=== PATIENT | female | born 1965 | race Caucasian/White ===

== ENCOUNTER 2021-08-02 09:27 | Emergency (ER) | payer OTHER ==
[~2021-08-02] VITALS: Ht 157.5 cm; Wt 97.1 kg
[2021-08-02 09:30] VITALS: BP_SYST 134
[2021-08-02 10:48] LABS: BASOPHILS % (AUTO) 0.3 % (0.0-2.0); EOSINOPHILS # (AUTO) 0.1 K/uL (0.0-0.4); EOSINOPHILS % (AUTO) 1.8 % (0.0-4.0); HEMATOCRIT 41.1 % (36-48); HEMOGLOBIN 13.6 g/dL (12.0-16.0); LYMPHOCYTES # (AUTO) 1.7 K/uL (1.0-5.5); LYMPHOCYTES % (AUTO) 26.8 % (20.5-51.5); MEAN CORPUSCULAR HEMOGLOBIN 28 pg (27-31); MEAN CORPUSCULAR HGB CONC 33 % (32-36); MEAN CORPUSCULAR VOLUME 83 fL (79.0-98.0); MONOCYTES # (AUTO) 0.3 K/uL (0.0-1.0); MONOCYTES % (AUTO) 5.4 % (1.7-9.3); NEUTROPHILS # (AUTO) 4.1 K/uL (1.8-7.7); NEUTROPHILS % (AUTO) 65.7 % (40.0-70.0); PLATELET COUNT (AUTO) 203 K/uL (130-430); RED BLOOD CELL COUNT(AUTO) 4.93 MIL/uL (4.2-6.2); RED CELL DISTRIBUTION WIDTH 13.7 % (9.0-15.0); WHITE BLOOD COUNT (AUTO) 6.2 K/uL (4.8-10.8)
[2021-08-02 11:09] LABS: CALCIUM 9.4 mg/dL (8.4-11.0); CREATININE 0.56 mg/dL (0.55-1.30); POTASSIUM 4.6 mmol/L (3.5-5.1)
[2021-08-02 11:24] LABS: ALBUMIN 3.2 g/dL (3.4-4.8); THYROID STIMULATING HORMONE 1.45 uIu/mL (0.36-3.74); TOTAL BILIRUBIN 0.4 mg/dL (0.0-1.0)
[2021-08-02] MEDS ORDERED: LORA-259 PO ×2 (11:35→11:42)
[2021-08-02 12:13] VITALS: BP_SYST 129
== END 2021-08-02 12:13 | disposition home or self-care (01) ==
LOC: SED 09:27
DX: I16.0 Hypertensive urgency (principal); Z79.899 Other long term (current) drug therapy
CPT/HCPCS: 36415; 71045; 80053; 83880; 84443; 84484; 85025; 93005; 99285

== ENCOUNTER 2022-06-14 13:34 | Emergency (ER) | payer OTHER ==
[~2022-06-14] VITALS: Ht 157.5 cm; Wt 99.3 kg
[~2022-06-14 13:34] MED LIST: LORA-259 PO
[2022-06-14 13:56] VITALS: BP_SYST 157
--- NOTE | 2022-06-14 14:00 | NUR ---
Patient triaged and placed in waiting room. VSS and patient appears in no acute distress at this time. Accompanied by FAMILY, awaiting available bed, and MD notified of need for MSE.
--- NOTE | 2022-06-14 14:25 | NUR ---
ER DR. OLIVO EXAMINING PT
[2022-06-14] MEDS ORDERED: cloNIDine HCL 0.1 MG TABLET PO ONE (14:30)
[2022-06-14 14:57] LABS: BASOPHILS % (AUTO) 0.2 % (0.0-2.0); EOSINOPHILS # (AUTO) 0.1 K/uL (0.0-0.4); EOSINOPHILS % (AUTO) 1.3 % (0.0-4.0); HEMATOCRIT 40.7 % (36-48); HEMOGLOBIN 13.6 g/dL (12.0-16.0); LYMPHOCYTES # (AUTO) 1.9 K/uL (1.0-5.5); MEAN CORPUSCULAR HEMOGLOBIN 28 pg (27-31); MEAN CORPUSCULAR HGB CONC 34 % (32-36); MEAN CORPUSCULAR VOLUME 85 fL (79.0-98.0); MONOCYTES # (AUTO) 0.4 K/uL (0.0-1.0); MONOCYTES % (AUTO) 4.2 % (1.7-9.3); NEUTROPHILS # (AUTO) 7.1 K/uL (1.8-7.7); NEUTROPHILS % (AUTO) 74.3 % (40.0-70.0); PLATELET COUNT (AUTO) 222 K/uL (130-430); RED CELL DISTRIBUTION WIDTH 13.9 % (9.0-15.0); WHITE BLOOD COUNT (AUTO) 9.6 K/uL (4.8-10.8)
[2022-06-14 15:40] LABS: ANION GAP 8 (5-15); CALCIUM 9.1 mg/dL (8.4-11.0); CHLORIDE 99 mmol/L (98-107); CREATININE 0.65 mg/dL (0.55-1.30); GLUCOSE 153 mg/dL (70-99); UREA NITROGEN, BLOOD 17 mg/dL (8-21)
[2022-06-14 15:46] LABS: ALANINE AMINOTRANSFERASE 17 U/L (12-78); ALBUMIN 3.4 g/dL (3.4-4.8); ASPARTATE AMINOTRANSFERASE 16 U/L (10-37); TOTAL BILIRUBIN 0.4 mg/dL (0.0-1.0)
[2022-06-14 15:48] LABS: GFR AFRICAN AMERICAN 120 mL/min (>90)
[2022-06-14] MEDS ORDERED: LISI1TAB57 PO (16:47)
[2022-06-14] MEDS ORDERED: AMLO5TAB4 PO (16:47)
[2022-06-14 16:53] VITALS: BP_SYST 171
--- NOTE | 2022-06-14 16:54 | NUR ---
Patient given written and verbal discharge instructions and verbalizes understanding. ER MD discussed with patient the results and treatment provided. Patient in stable condition. ID arm band Rx of NORVASC AND LISINOPRIL-HCTZ given. Patient educated on pain management and to follow up with PMD. Pain Scale 0/10. Opportunity for questions provided and answered. Medication side effect fact sheet provided.
== END 2022-06-14 16:54 | disposition home or self-care (01) ==
LOC: SED 13:34
DX: I11.0 Hypertensive heart disease with heart failure (principal); I50.9 Heart failure, unspecified; Z79.899 Other long term (current) drug therapy
CPT/HCPCS: 36415; 80053; 84484; 85025; 93005; 99284

== ENCOUNTER 2023-08-06 13:39 | Emergency (ER) | payer OTHER ==
[~2023-08-06] VITALS: Ht 157.5 cm; Wt 99.8 kg
[~2023-08-06 13:39] MED LIST changes: +AMLO5TAB4 PO; +LISI1TAB57 PO
[2023-08-06 13:42] VITALS: BP_SYST 190; PULSE 73; RESP 22; TEMP 98.3; O2SAT 98
[2023-08-06 14:34] LABS: BASOPHILS % (AUTO) 0.4 % (0.0-2.0); EOSINOPHILS # (AUTO) 0.1 K/uL (0.0-0.4); EOSINOPHILS % (AUTO) 1.5 % (0.0-4.0); HEMATOCRIT 42.7 % (36-48); HEMOGLOBIN 14.5 g/dL (12.0-16.0); LYMPHOCYTES # (AUTO) 3.3 K/uL (1.0-5.5); LYMPHOCYTES % (AUTO) 33.1 % (20.5-51.5); MEAN CORPUSCULAR HEMOGLOBIN 29 pg (27-31); MEAN CORPUSCULAR HGB CONC 34 % (32-36); MEAN CORPUSCULAR VOLUME 85 fL (79.0-98.0); MONOCYTES # (AUTO) 0.5 K/uL (0.0-1.0); MONOCYTES % (AUTO) 5.2 % (1.7-9.3); NEUTROPHILS % (AUTO) 59.8 % (40.0-70.0); PLATELET COUNT (AUTO) 285 K/uL (130-430); RED BLOOD CELL COUNT(AUTO) 4.99 MIL/uL (4.2-6.2); RED CELL DISTRIBUTION WIDTH 13.5 % (9.0-15.0); WHITE BLOOD COUNT (AUTO) 10.1 K/uL (4.8-10.8)
[2023-08-06 14:51] LABS: ALBUMIN 3.6 g/dL (3.4-4.8); CALCIUM 9.2 mg/dL (8.4-11.0); CREATININE 0.75 mg/dL (0.55-1.30); POTASSIUM 4.3 mmol/L (3.5-5.1); TOTAL BILIRUBIN 0.4 mg/dL (0.0-1.0); TOTAL PROTEIN, SERUM 8.1 g/dL (6.4-8.3)
[2023-08-06 15:42] VITALS: BP_SYST 152; PULSE 73; RESP 22; TEMP 98.3; O2SAT 98
== END 2023-08-06 15:42 | disposition home or self-care (01) ==
LOC: SED 13:39
DX: R53.1 Weakness (principal); K21.9 Gastro-esophageal reflux disease without esophagitis; I10 Essential (primary) hypertension; Z90.49 Acquired absence of other specified parts of digestive tract
CPT/HCPCS: 36415; 80053; 83690; 85025; 93005; 99284

== ENCOUNTER 2023-09-01 08:19 | Emergency (ER) | payer OTHER ==
[~2023-09-01] VITALS: Ht 157.5 cm; Wt 99.8 kg
[2023-09-01 08:29] VITALS: BP_SYST 134; PULSE 72; RESP 18; TEMP 97.4; O2SAT 98
[2023-09-01] MEDS ORDERED: ASPI-524 PO (08:29)
[2023-09-01 09:25] LABS: BASOPHILS # (AUTO) 0.1 K/uL (0.0-0.2); BASOPHILS % (AUTO) 0.7 % (0.0-2.0); EOSINOPHILS # (AUTO) 0.2 K/uL (0.0-0.4); EOSINOPHILS % (AUTO) 1.7 % (0.0-4.0); HEMATOCRIT 40.4 % (36-48); HEMOGLOBIN 13.5 g/dL (12.0-16.0); LYMPHOCYTES # (AUTO) 2.2 K/uL (1.0-5.5); LYMPHOCYTES % (AUTO) 25.4 % (20.5-51.5); MEAN CORPUSCULAR HEMOGLOBIN 28 pg (27-31); MEAN CORPUSCULAR HGB CONC 33 % (32-36); MEAN CORPUSCULAR VOLUME 85 fL (79.0-98.0); MONOCYTES # (AUTO) 0.3 K/uL (0.0-1.0); MONOCYTES % (AUTO) 3.5 % (1.7-9.3); NEUTROPHILS # (AUTO) 6.1 K/uL (1.8-7.7); NEUTROPHILS % (AUTO) 68.7 % (40.0-70.0); PLATELET COUNT (AUTO) 259 K/uL (130-430); RED BLOOD CELL COUNT(AUTO) 4.77 MIL/uL (4.2-6.2); RED CELL DISTRIBUTION WIDTH 13.4 % (9.0-15.0); WHITE BLOOD COUNT (AUTO) 8.9 K/uL (4.8-10.8)
[2023-09-01 09:37] LABS: CREATININE 0.81 mg/dL (0.55-1.30); POTASSIUM 4.3 mmol/L (3.5-5.1)
[2023-09-01 10:09] LABS: BILIRUBIN,URINE NEGATIVE (NEGATIVE); BLOOD, URINE NEGATIVE (NEGATIVE); CLARITY/URINE CLEAR (CLEAR); COLOR,URINE YELLOW (YELLOW); GLUCOSE,URINE NEGATIVE (NEGATIVE); KETONES,URINE NEGATIVE (NEGATIVE); LEUKOCYTE ESTERASE ,URINE NEGATIVE (NEGATIVE); NITRITE, URINE NEGATIVE (NEGATIVE); PH,URINE 6.5 (5.0-8.0); PROTEIN URINE NEGATIVE (NEGATIVE); UROBILINOGEN,URINE 0.2 (0.2-1.0)
[2023-09-01] MEDS ORDERED: CIPR500T5 PO (10:44)
[2023-09-01] MEDS ORDERED: HYDR-3917 PO (10:44)
[2023-09-01] MEDS ORDERED: METR-154 PO (10:44)
[2023-09-01] MEDS: CIPROFLOXACIN HCL 500 MG TABLET PO ONE (10:58)
[2023-09-01 11:01] VITALS: BP_SYST 157; PULSE 62; RESP 18; TEMP 98; O2SAT 97
== END 2023-09-01 11:05 | disposition home or self-care (01) ==
LOC: SED 08:19
DX: K57.92 Diverticulitis of intestine, part unspecified, without perforation or abscess without bleeding (principal); I25.10 Atherosclerotic heart disease of native coronary artery without angina pectoris; I10 Essential (primary) hypertension; K21.9 Gastro-esophageal reflux disease without esophagitis; Z98.890 Other specified postprocedural states
CPT/HCPCS: 36415; 80048; 81001; 81003; 85025; 99284

== ENCOUNTER 2023-12-29 12:21 | Emergency (ER) | payer OTHER ==
[~2023-12-29] VITALS: Ht 157.5 cm; Wt 99.3 kg
[~2023-12-29 12:21] MED LIST changes: +ASPI-524 PO; +CIPR500T5 PO; +HYDR-3917 PO; +METR-154 PO
[2023-12-29 12:44] VITALS: BP_SYST 132; PULSE 70; RESP 18; TEMP 97.7; O2SAT 97
[2023-12-29 13:53] VITALS: BP_SYST 132; PULSE 70; RESP 18; TEMP 97.7; O2SAT 97
== END 2023-12-29 13:54 | disposition home or self-care (01) ==
LOC: SED 12:21
DX: M25.511 Pain in right shoulder (principal); K21.9 Gastro-esophageal reflux disease without esophagitis; I10 Essential (primary) hypertension; Z90.49 Acquired absence of other specified parts of digestive tract; Z98.890 Other specified postprocedural states; Z79.899 Other long term (current) drug therapy; Z79.2 Long term (current) use of antibiotics; Z79.82 Long term (current) use of aspirin
CPT/HCPCS: 73030; 99283